=== PATIENT | male | born 1980 | race African-American/Black ===

== ENCOUNTER 2020-03-09 21:36 | Emergency (ER) | payer OTHER ==
[~2020-03-09] VITALS: Ht 167.6 cm; Wt 81.7 kg
[2020-03-09] MEDS ORDERED: KEFLEX500 M1 PO (23:01)
[2020-03-09] MEDS ORDERED: BACTRIM DS TAB1 EACH PO (23:01)
[2020-03-09 23:15] VITALS: BP 140/97
== END 2020-03-09 23:15 | disposition home or self-care (01) ==
LOC: ER 21:36
DX: L02.512 Cutaneous abscess of left hand (principal); L02.511 Cutaneous abscess of right hand

== ENCOUNTER 2021-06-18 20:00 | Emergency (ER) | payer OTHER ==
[~2021-06-18] VITALS: Ht 167.6 cm; Wt 83.9 kg
[~2021-06-18 20:00] MED LIST: BACTRIM DS TAB1 EACH PO; KEFLEX500 M1 PO
[2021-06-18] MEDS ORDERED: ERYTHROMYCIN E3.5 G2 OPHTHALMIC (21:03)
[2021-06-18] MEDS ORDERED: HYDROCODON-ACE1 EAC7 PO (21:03)
[2021-06-18 21:29] VITALS: BP 151/96
== END 2021-06-18 21:30 | disposition home or self-care (01) ==
LOC: ER 20:00
DX: S05.01XA Injury of conjunctiva and corneal abrasion without foreign body, right eye, initial encounter (principal); X58.XXXA Exposure to other specified factors, initial encounter; Y93.89 Activity, other specified; Y92.89 Other specified places as the place of occurrence of the external cause; Y99.8 Other external cause status